=== PATIENT | female | born 1940 | race African-American/Black ===

== ENCOUNTER → 2016-07-23 | Outpatient (CLI) | payer MEDICARE, OTHER ==
[~2016-07-23] MED LIST: ADVAIR 250-501 EAC1 IH; ASPIRIN81 MG PO; BENAZEPRIL HCL5 M1 PO; C-500500 M1 PO; COREG6.25 MG PO; GINKGO60 MG PO; GLUCOPHAGE500 M1 PO; HYDROCHLOROTHIA25 MG PO; HYDROCODON-ACE1 EACH PO; LIPITOR40 MG DOB; LOTENSIN10 MG PO; MULTI VITAMIN1 EACH PO; PROAIR HFA INH; VERAPAMIL ER240 MG PO; VIT B12; ZANAFLEX PO; [UNRECOGNIZED DRUG - OTHER] PO
--- NOTE | ~2016-07-23 | US37 ---
[facility] A Service of [facility] & [facility] RADIOLOGY TEXT RESULTS PATIENT: PROMISE BLACK LOCATION: CNIV : 39 UNIT #: [id number] AGE: [address]: Peter Looney MD SEX: F ORDER DR: [id number] [facility] [address] [place], [place] [address] [id number] O MR#: [id number] Acc #: [id number] NAME: PROMISE BLACK : 1940 SEX: F STUDY DATE/TIME: 07/23/2016 16:06 UNIT: CNIV ROOM: STUDY DESCRIPTION: US Carotid W/Doppler Bilateral Attending Physician: Peter Looney M.D. Referring Physician: Peter Looney M.D. Ordering Physician: Peter Looney M.D. Primary Care Physician: Izaiah Stein M.D. MEDICAL IMAGING REPORT This report is preliminary unless electronic signature is present EXAM Bilateral carotid duplex, 07/23/2016 HISTORY Bilateral carotid artery stenosis FINDINGS There is patent flow seen throughout the right common carotid, internal carotid, and external carotid arteries. There is mild, homogeneous irregular appearing plaque seen in the common carotid artery. It become more irregular, heterogeneous, and echogenic at the right carotid bifurcation. This plaque extends into the external carotid artery, as well as the proximal aspect of the internal carotid artery. The right common carotid artery peak velocity is 67 cm/sec. The right internal carotid artery peak systolic over end-diastolic velocities are: proximal 148/37 cm/sec, mid 108/21 cm/sec, distal 93/28 cm/sec. The right external carotid artery has a peak velocity of 465 cm/sec, and vertebral artery 29 cm/sec. The right ICA/CCA ratio is 2.25. There is patent flow seen throughout the left common carotid, internal carotid and external carotid arteries. At the left carotid bifurcation, there is heterogeneous, irregular, and echogenic plaque, which extends into the external carotid artery, as well as the internal carotid artery. The left common carotid artery peak velocity is 65 cm/sec. The internal carotid artery peak systolic over end-diastolic velocities are: proximal 136/31 cm/sec, mid 75/19 cm/sec, distal 120/25 cm/sec. The left external carotid artery peak velocity is 88 cm/sec, and vertebral artery 41 cm/sec. The left ICA/CCA ratio is 2.10. IMPRESSION 1. The right carotid artery has moderate atherosclerosis, consistent with 50% to 69% stenosis by duplex criteria. This represents an [facility] A Service of [facility] RADIOLOGY TEXT RESULTS PATIENT: PROMISE BLACK LOCATION: CNIV : 39 UNIT #: [id number] AGE: [address]: Peter Looney MD SEX: F ORDER DR: increase from the previously seen 03/2015 study, at which time it measured less than 50% stenosis by duplex criteria. 2. The left carotid artery has moderate atherosclerosis, consistent with 50% to 69% stenosis by duplex criteria. Again, this represents a mild increase from the 03/2015 study. 3. Likely high grade stenosis of the right external carotid artery, as previously seen. 4. Vertebral flows antegrade bilaterally. Dictated by... Clarence Velásquez M.D. THIS IS AN ELECTRONICALLY VERIFIED REPORT Clarence Velásquez M.D. at 07/30/2016 7:45 AM Berny TD: 07/24/2016 10:16 JOB #: [id number] MEDICAL IMAGING REPORT Page 1 of 1 COPY
== END | disposition home or self-care (01) ==
LOC: CNIV 15:13
DX: I65.23 Occlusion and stenosis of bilateral carotid arteries (principal)
CPT/HCPCS: 93880